=== PATIENT | female | born 1940 | race Caucasian/White ===

== ENCOUNTER 2018-12-17 10:23 | Day surgery (SDC) | payer MEDICARE, BC ==
--- NOTE | 2018-12-17 09:04 | HP ---
AMENDED REPORT: DATE OF SURGERY: 12/17/2018 HISTORY OF PRESENT ILLNESS: The patient is an 78 year-old white female the last ten days with hemoccult positive and bloody stools. Negative for colon cancer. PAST MEDICAL HISTORY: Parkinson's. Chronic obstructive pulmonary disease. Congestive heart disease. Diabetes mellitus type 2. Rheumatoid arthritis. Hypothyroidism. PAST SURGICAL HISTORY: Hysterectomy several years ago. Thyroid surgery in the past. Left and right knee replacement in the past. Sacroiliac joint fusion in the past. Lumbar surgery in the past. Tonsillectomy. Orthopedic procedure in the past. Spinal fusion in neck in the past. MEDICATIONS: Aspirin, Baclofen, carbidopa/levodopa, Furosemide, gabapentin, Albuterol, levothyroxine, Nystatin, Metformin, lovastatin, potassium chloride, prednisolone, Premarin, primidone, Pro-Air HFA, propafenone, stool softener, Tobrex eye drops, topiramate, aspirin, Tylenol. ALLERGIES: AMOXICILLIN, LEVAQUIN. SULFA. SENSITIVE TO SURGERY CANDY IN THE PAST. FAMILY HISTORY: Diabetes. Leukemia. Heart disease. Hypertension. SOCIAL HISTORY: No smoking or alcohol abuse. REVIEW OF SYSTEMS: Fourteen systems reviewed as noted above. PHYSICAL EXAMINATION: GENERAL: No acute distress. HEENT: Sclerae nonicteric. NECK: No JVD. CHEST: Equal excursion, nonlabored breathing. Decreased breath sounds consistent with chronic obstructive pulmonary disease. CVS: Regular rate and rhythm. ABDOMEN: Soft, nontender. EXTREMITIES: No significant edema. NEURO: Alert, oriented, moving extremities symmetrically. No gross motor deficits noted. IMPRESSION: Last colonoscopy years ago. I feel she would benefit from screening colonoscopy as she was diagnosed with ileus in the past and last colonoscopy several years ago. She is in need of colonoscopy under MAC anesthesia. Risks and benefits explained in detail including but not limited to bleeding or infection, risk of bowel injury or perforation possibly requiring open procedure, risk of missed or nondiagnosis or incomplete exam possibly requiring barium enema, other studies or procedures, general risk of anesthesia or sedation but not limited to. She understands and agrees to the planned procedure and will proceed with outpatient colonoscopy.
[~2018-12-17 10:23] MED LIST: Lactated Ringers 1,000 ML IV SCH
[2018-12-17] MEDS ORDERED: DIPRIVAN 200 MG/20 ML IV ONE ×2 (13:01→13:05)
[2018-12-17 13:58] VITALS: BP 115/57; PULSE 76; O2SAT 96
--- NOTE | 2018-12-18 09:03 | OP ---
SURGERY DATE/TIME: 12/17/2018 1209 PREOPERATIVE DIAGNOSIS: Last colonoscopy years ago, need for screening colonoscopy, question hemoccult positive. POSTOPERATIVE DIAGNOSES: 1) Poor prep. 2) Diverticulosis. 3) Tortuous colon. 4) Internal and external hemorrhoids. 5) Small raised rectal lesion versus hyperplastic lesion. PROCEDURE: Colonoscopy ascending colon with hot biopsy removal of small raised lesion rectum versus hyperplastic lesion, path pending. SURGEON: Dr. Mohan Souza. ANESTHESIA: MAC. ESTIMATED BLOOD LOSS: Minimal. INDICATIONS: As noted above. Risks and benefits explained in detail but not limited to and consent obtained. DESCRIPTION OF PROCEDURE AND FINDINGS: The patient is taken to the operating room. MAC anesthesia introduced. After official time out and no disagreement with planned procedure, digital rectal exam revealed some internal and external hemorrhoids. There are no signs of any large polyps, masses or obstructing lesions. Video colonoscope inserted and passed across the transverse colon to the ascending colon. She is morbidly obese. Positioned on her back with multiple staff members trying to compress the abdomen and still looping could not be reduced enough given her obesity to allow the scope to go the last few short centimeters to the cecum itself what was felt to be cecum could be visualized. As it could not be 100% well seen, it was felt the next best option with dual contrast barium enema. Again, we spent multiple minutes trying to reposition the patient. Repositioned and pressure, still the scope would not quite reach the cecum safely. At this point the scope is carefully withdrawn. Prep overall was poor with liquidy semi-solid and solid stool limiting exam for small lesions. The scope is slowly and carefully withdrawn. There were no signs of any large polyps, masses or obstructing lesions. She did have some diverticulosis. She did have very small, very vague raised lesion versus hyperplastic lesion versus hyperplasia of mucosa versus early polyp in the rectum removed with hot biopsy forceps. Good hemostasis noted. Otherwise there were no signs of any large polyps, masses or obstructing lesions. The patient tolerated the procedure well. There were no immediate complications. Findings discussed with the family out in the waiting area. Will order barium enema to see the part that we could not quite reach in the tip of the cecum and ascending colon. Again, colonoscopy did reach the proximal ascending colon but not quite far enough to completely visualize the cecum.
== END 2018-12-17 14:34 | disposition home or self-care (01) ==
LOC: SDC 10:23
PROVIDERS: ATTEND Surgery
DX: Z12.11 Encounter for screening for malignant neoplasm of colon (principal); K57.30 Diverticulosis of large intestine without perforation or abscess without bleeding; D12.8 Benign neoplasm of rectum; K64.8 Other hemorrhoids; K64.4 Residual hemorrhoidal skin tags; E11.9 Type 2 diabetes mellitus without complications; G20 Parkinson's disease; J44.9 Chronic obstructive pulmonary disease, unspecified; M06.9 Rheumatoid arthritis, unspecified; E03.9 Hypothyroidism, unspecified; Z79.899 Other long term (current) drug therapy
CPT/HCPCS: 82962; 88305; 99100; J2704